=== PATIENT | female | born 1935 | race American Indian/Alaskan Native ===

== ENCOUNTER 2017-08-31 10:14 | Outpatient (CLI) | payer MEDICARE ==
--- NOTE | 2017-08-31 15:14 | Ultrasound Report ---
BILATERAL DIGITAL DIAGNOSTIC MAMMOGRAM with CAD and LEFT BREAST ULTRASOUND: 08/31/17 00:00:00 CLINICAL: Left breast lump and pain. COMPARISON:None. FINDINGS: The breasts are most entirely fatty. Left retroareolar asymmetries demonstrate partial effacement with spot compression. No mammographic finding at a left upper probable marker. A few bilateral benign calcifications. No mass, architectural distortion or suspicious calcifications. Ultrasound of the left breast moderate retroareolar ductal ectasia with no intraductal mass identified. Ultrasound of the area of a tender palpable lump demonstrated normal fatty structures with no mass, cyst or shadowing. 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 BI-RADS CATEGORY: 3 - - Probably Benign RECOMMENDATION: Six month followup left mammogram and left breast ultrasound to reevaluate probably benign duct ectasia. COMMENT: Patient follow-up letters are generated by our [employer] application.
== END 2017-08-31 10:15 | disposition home or self-care (01) ==
LOC: SPVWC 10:14
PROVIDERS: ATTEND Internal Medicine
DX: N63.20 Unspecified lump in the left breast, unspecified quadrant (principal); R92.1 Mammographic calcification found on diagnostic imaging of breast; N64.4 Mastodynia
CPT/HCPCS: 77066

== ENCOUNTER 2018-11-22 11:26 | Outpatient (CLI) | payer MEDICARE ==
--- NOTE | 2018-11-22 13:24 | Mammography Report ---
BILATERAL DIGITAL DIAGNOSTIC MAMMOGRAM with CAD and BILATERAL BREAST ULTRASOUND: 11/22/18 11:00:00 CLINICAL: Bilateral breast lumps. The requisition describes right breast nodules from 9 to 12 o'clock and painful nodules in the left breast from 12 to 2 o'clock. However, the patient denies feeling a lump. COMPARISON:08/31/17 FINDINGS: The breasts are almost entirely fatty.No mass, suspicious architectural distortion or suspicious calcifications . Stable left retroareolar duct ectasia. Ultrasound of the right breast (including all four quadrants and the retroareolar area) was performed and demonstrated normal fibroglandular and fatty structures. No mass, cyst or shadowing. Ultrasound of the left breast (including all four quadrants and the retroareolar area) was performed and demonstrated normal fibroglandular and fatty structures. No mass, cyst or shadowing. Retroareolar duct ectasia but no intraductal mass. IMPRESSION: Negative right breast and stable left benign duct ectasia. No suspicious findings. BI-RADS CATEGORY: 2 -- Benign RECOMMENDATION: Clinical follow-up and routine mammographic screening in one year. COMMENT: 1. Dense breast tissue, i.e., adenosis, fibrocystic changes, etc., may obscure an underlying neoplasm. 2. Approximately 10% of cancers are not detected with mammography. 3. A negative mammography report should not delay biopsy if a clinically suspicious mass is present. COMMENT: Patient follow-up letters are generated by our [employer] application.
== END 2018-11-22 11:27 | disposition home or self-care (01) ==
LOC: SPVWC 11:26
PROVIDERS: ATTEND Internal Medicine
DX: N63.10 Unspecified lump in the right breast, unspecified quadrant (principal); N63.20 Unspecified lump in the left breast, unspecified quadrant
CPT/HCPCS: 77066

== ENCOUNTER 2020-03-26 11:13 | Outpatient (CLI) | payer MEDICARE ==
--- NOTE | 2020-03-26 12:49 | Mammography Report ---
BILATERAL DIGITAL SCREENING MAMMOGRAM WITH CAD HISTORY: SCREENING MAMMOGRAM TECHNIQUE: Routine digital mammographic imaging performed. This examination was interpreted with tushar gomez benefit of Computer-aided Detection analysis. COMPARISON: 11/22/2018, 08/31/2017. FINDINGS: Breast Density: scattered fibroglandular appearance of the breast tissue. Digital CC and MLO views demonstrate no mammographic evidence of malignancy. IMPRESSION: No mammographic evidence of malignancy. If the clinical examination remains stable, recommend bilate ral mammogram in approximately one year. BIRADS 1: Negative. FURTHER INFORMATION: According to the [employer], yearly mammograms are recommend ed starting at age 40 and continuing as long as a woman is in good health. Clinical Breast Exams shou ld be part of a periodic health exam-about every 3 years for women in their 20s and 30s and every yea r for women 40 and over. Breast self exam is an option for women starting in their 20s. Any breast ch manasa noted on a breast self exam should be reported promptly to the patient's healthcare provider. Br east MRI is recommended for women with an approximately 20-25% or greater lifetime risk of breast can cer, including women with a strong family history of breast or ovarian cancer and women who have been treated for Hodgkin's disease. A negative Mammography report should not discourage follow up or biopsy of a clinically significant f inding and/or abnormality. Dense breast tissue may obscure small neoplasms. The patient will be entered into a reminder system with a target due date for the next screening mamm ogram. Signer Name: Curtis Grijalva MD Signed: 03/26/2020 12:44 PM Workstation Name: [id number]
== END 2020-03-26 11:14 | disposition home or self-care (01) ==
LOC: SPVWC 11:13
PROVIDERS: ATTEND Internal Medicine
DX: Z12.31 Encounter for screening mammogram for malignant neoplasm of breast (principal)
CPT/HCPCS: 77067

== ENCOUNTER 2021-04-09 10:35 | Outpatient (CLI) | payer MEDICARE ==
--- NOTE | 2021-04-10 09:55 | Mammography Report ---
DIGITAL SCREENING MAMMOGRAM WITH CAD, 04/10/2021 CLINICAL INFORMATION / INDICATION: Routine screening mammography. SCREENING TECHNIQUE: Digital bilateral 2D mammography was obtained in the craniocaudal and mediolateral obliqu e projections. This examination was interpreted with the benefit of Computer-Aided Detection analysis . COMPARISON: 03/26/2020 FINDINGS: Breast Density: There are scattered areas of fibroglandular density. No dominant mass, suspicious calcifications, or architectural distortion in either breast. IMPRESSION: No mammographic evidence of malignancy. Follow up recommendation: Routine yearly BI-RADS Category 1: Negative. A "normal" or negative report should not discourage follow up or biopsy of a clinically significant f inding. A written summary of these findings will be mailed to the patient. The patient will be entered into a mammography reporting system which will generate a reminder letter for the patient's next appointmen t at the appropriate interval. The [employer] recommends yearly mammograms starting at age 40 and continuing as l mercy as a woman is in good health. Breast MRI is recommended for women with an approximate 20-25% or greater lifetime risk of breast cancer, including women with a strong family history of breast or ova omar cancer or who have been treated for Hodgkin's disease. Signer Name: Ko Barksdale MD Signed: 04/10/2021 9:51 AM Workstation Name: [id number]
== END 2021-04-09 10:36 | disposition home or self-care (01) ==
LOC: SPVWC 10:35
PROVIDERS: ATTEND Internal Medicine
DX: Z12.31 Encounter for screening mammogram for malignant neoplasm of breast (principal)
CPT/HCPCS: 77067